=== PATIENT | male | born 1955 | race Caucasian/White ===

== ENCOUNTER 2021-02-01 11:51 | Emergency (ER) | payer OTHER ==
[~2021-02-01 11:51] MED LIST: BENADRYL 25MG C25 MG PO; ECOTRIN81 MG PO; KEFLEX CAP 500500 MG PO; LIPITOR TAB 2020 MG PO; LISINOPRIL10 MG PO; LORTAB 5-325 M1 EACH PO; MIRALAX17 GM PO; MUCUS ER600 MG PO; MULTIVITAMINS1 EAC1 PO; NAPROXEN 250 M250 MG PO; NEURONTIN400 MG PO; NORCO 5-325 TA1 EACH PO; OCTAGAM 10% VI200 ML IV; PREDNISONE 20 M20 MG PO; PREDNISONE20 MG PO; VITAMIN D32000 UNI1 PO; ZANTAC150 MG PO; ZYRTEC10 M3 PO
[2021-02-01 12:50] LABS: HEMOGLOBIN 15.9 gm/dl (14.0-17.5); RED BLOOD COUNT 5.23 M/UL (4.20-5.50); WHITE BLOOD COUNT 9.2 K/UL (4.5-11.0)
[2021-02-01 13:17] LABS: BUN/CREATININE RATIO 17 (0-10)
[2021-02-01] MEDS ORDERED: AUGMENTIN 875-1 EACH PO (17:07)
[2021-02-01] MEDS ORDERED: COLACE 100MG C100 MG PO (17:09)
[2021-02-01] MEDS ORDERED: ENDOCET 5-3251 EACH PO (17:09)
[2021-02-22] MEDS ORDERED: NEURONTIN600 MG PO (07:08)
[2021-02-22] MEDS ORDERED: VITAMIN D250 MCG PO (07:09)
[2021-02-22] MEDS ORDERED: SYNTHROID PO (07:09)
== END 2021-02-01 17:27 | disposition home or self-care (01) ==
LOC: ER1 11:51
PROVIDERS: Emergency Medicine
DX: A09 Infectious gastroenteritis and colitis, unspecified (principal)
CPT/HCPCS: 80053; 81001; 83690; 85025; 99284; Q9967

== ENCOUNTER → 2021-02-22 | Day surgery (SDC) | payer OTHER ==
[~2021-02-22] MED LIST changes: +AUGMENTIN 875-1 EACH PO; +COLACE 100MG C100 MG PO; +ENDOCET 5-3251 EACH PO; +NEURONTIN600 MG PO; +SYNTHROID PO; +VITAMIN D250 MCG PO
== END | disposition home or self-care (01) ==
LOC: OR 06:34
DX: C18.9 Malignant neoplasm of colon, unspecified (principal); D12.2 Benign neoplasm of ascending colon; D12.5 Benign neoplasm of sigmoid colon; D12.3 Benign neoplasm of transverse colon; D12.8 Benign neoplasm of rectum; K64.1 Second degree hemorrhoids; E78.00 Pure hypercholesterolemia, unspecified; I10 Essential (primary) hypertension; J44.9 Chronic obstructive pulmonary disease, unspecified; E03.9 Hypothyroidism, unspecified; F17.210 Nicotine dependence, cigarettes, uncomplicated; E66.3 Overweight; Z68.25 Body mass index [BMI] 25.0-25.9, adult; Z88.8 Allergy status to other drugs, medicaments and biological substances; Z79.899 Other long term (current) drug therapy
CPT/HCPCS: J2001; J2704

== ENCOUNTER → 2021-07-13 | Outpatient (CLI) | payer OTHER | LOC: KOH-I 15:06 | DX: R05.9 Cough, unspecified (principal); R06.02 Shortness of breath; R06.2 Wheezing | CPT/HCPCS: 71046 ==

== ENCOUNTER 2021-07-23 11:16 | Emergency (ER) | payer OTHER ==
[2021-07-23 12:19] LABS: HEMOGLOBIN 13.8 gm/dl (14.0-17.5); RED BLOOD COUNT 4.75 M/UL (4.20-5.50); WHITE BLOOD COUNT 9.3 K/UL (4.5-11.0)
[2021-07-23 12:39] LABS: BUN/CREATININE RATIO 14 (0-10)
[2021-07-23] MEDS ORDERED: ZOFRAN4 MG PO (18:44)
[2021-07-23] MEDS ORDERED: FIBER LAX625 MG PO (18:44)
[2021-07-23] MEDS ORDERED: COLACE 100MG C100 MG PO (18:44)
[2021-07-23] MEDS ORDERED: AUGMENTIN 875-1 EACH PO (18:44)
== END 2021-07-23 19:00 | disposition home or self-care (01) ==
LOC: ER1 11:16
PROVIDERS: Physician Assistant
DX: K52.9 Noninfective gastroenteritis and colitis, unspecified (principal); J98.11 Atelectasis; I10 Essential (primary) hypertension; Z20.822 Contact with and (suspected) exposure to COVID-19; Z85.038 Personal history of other malignant neoplasm of large intestine
CPT/HCPCS: 71045; 80053; 81001; 82550; 82553; 83874; 84484; 85025; 96374; 96375; 96376; 99284; J1170; J2270; J2405; Q9967; U0002

== ENCOUNTER 2021-07-25 16:21 | Emergency (ER) | payer OTHER ==
[~2021-07-25 16:21] MED LIST changes: +FIBER LAX625 MG PO; +ZOFRAN4 MG PO
[2021-07-25 16:48] LABS: HEMOGLOBIN 14.5 gm/dl (14.0-17.5); RED BLOOD COUNT 4.95 M/UL (4.20-5.50); WHITE BLOOD COUNT 10.5 K/UL (4.5-11.0)
[2021-07-25 17:13] LABS: BUN/CREATININE RATIO 11 (0-10)
== END 2021-07-25 22:00 | disposition short-term general hospital (02) ==
LOC: ER1 16:21
PROVIDERS: Family Medicine
DX: R10.84 Generalized abdominal pain (principal); K21.9 Gastro-esophageal reflux disease without esophagitis; E78.5 Hyperlipidemia, unspecified; I10 Essential (primary) hypertension; F17.210 Nicotine dependence, cigarettes, uncomplicated; Z20.822 Contact with and (suspected) exposure to COVID-19
CPT/HCPCS: 80053; 81001; 85025; 96374; 96375; 96376; 99284; J2270; J2405; U0002

== ENCOUNTER 2021-11-23 20:43 | Emergency (ER) | payer OTHER ==
[2021-11-23 21:24] LABS: HEMOGLOBIN 16.1 gm/dl (14.0-17.5); RED BLOOD COUNT 5.38 M/UL (4.20-5.50); WHITE BLOOD COUNT 11.8 K/UL (4.5-11.0)
[2021-11-23 21:51] LABS: BUN/CREATININE RATIO 16 (0-10)
== END 2021-11-24 03:19 | disposition short-term general hospital (02) ==
LOC: ER1 20:43
PROVIDERS: Physician Assistant
DX: R10.84 Generalized abdominal pain (principal); R19.7 Diarrhea, unspecified; R10.817 Generalized abdominal tenderness; E78.5 Hyperlipidemia, unspecified; I10 Essential (primary) hypertension; F17.210 Nicotine dependence, cigarettes, uncomplicated; Z85.038 Personal history of other malignant neoplasm of large intestine; Z20.822 Contact with and (suspected) exposure to COVID-19
CPT/HCPCS: 0240U; 80053; 81001; 82550; 82553; 83605; 83690; 83735; 84484; 85025; 85652; 86140; 93005; 96365; 96366; 96375; 96376; 99285; J2270; J2405; J2543; J3480; Q9967